=== PATIENT | male | born 1960 | race Caucasian/White ===

== ENCOUNTER → 2023-07-11 | Outpatient (CLI) | payer BC ==
--- NOTE | 2023-07-12 09:46 | CA ---
Transthoracic Echo Report Name: Alexandr Mendoza Age: 63 Gender: M : 1960 Exam Date: 07/11/2023 16:55 Exam Location: [facility] Ht (in): 71 Wt (lb): 195 Ordering Physician: Eric Khan MD Attending/Referring Phys: Eric Khan MD [employer]per Alia Ortiz, RDCS Procedure CPT: Indications: I10 HTN R01.1 CARDIAC MURMUR, UNSPECIFIE Cardiac Hx: Technical Quality: Good Contrast 1: Total Dose (mL): Contrast 2: Total Dose (mL): MEASUREMENTS (Male / Female) Normal Values 2D ECHO LV Diastolic Diameter PLAX 5.5 cm 4.2 - 5.9 / 3.9 - 5.3 cm LV Systolic Diameter PLAX 3.5 cm IVS Diastolic Thickness 0.9 cm 0.6 - 1.0 / 0.6 - 0.9 cm LVPW Diastolic Thickness 1.0 cm 0.6 - 1.0 / 0.6 - 0.9 cm LV Relative Wall Thickness 0.4 RV Internal Dim ED PLAX 3.1 cm LA Systolic Diameter LX 3.7 cm 3.0 - 4.0 / 2.7 - 3.8 cm LV Diastolic Volume MOD 4C 121.0 cm??? LV Systolic Volume MOD 4C 62.7 cm??? LV Ejection Fraction MOD 4C 48.2 % LV Cardiac Index MOD 4C 1788.2 cm???/min???m??? LV Diastolic Length 4C 8.9 cm LV Systolic Length 4C 7.4 cm LV Diastolic Volume MOD 2C 86.4 cm??? LV Systolic Volume MOD 2C 46.7 cm??? LV Ejection Fraction MOD 2C 46.0 % LV Cardiac Index MOD 2C 1218.6 cm???/min???m??? LV Diastolic Length 2C 8.2 cm LV Systolic Length 2C 7.0 cm LA Volume 40.0 cm??? 18 - 58 / 22 - 52 cm??? LA Volume Index 18.9 cm???/m??? 16 - 28 cm???/m??? M-MODE Aortic Root Diameter MM 3.5 cm MV E Point Septal Separation 0.5 cm AV Cusp Separation MM 2.3 cm DOPPLER AV Peak Velocity 106.0 cm/s AV Peak Gradient 4.5 mmHg MV Area PHT 3.1 cm??? Mitral E Point Velocity 68.6 cm/s Mitral A Point Velocity 81.5 cm/s Mitral E to A Ratio 0.8 MV Deceleration Time 241.1 ms MV E' Velocity 5.6 cm/s Mitral E to MV E' Ratio 12.2 FINDINGS Left Ventricle Left ventricular ejection fraction is estimated at 50-55 %. Left ventricular cavity size normal. Left ventricular wall thickness normal. No obvious regional wall motion abnormalities. Right Ventricle Normal right ventricular size. Unable to estimate the right ventricular systolic pressure. Right Atrium Normal right atrial size. Left Atrium Normal left atrial size. Mitral Valve Structurally normal mitral valve. No mitral stenosis, regurgitation or prolapse. Aortic Valve Trileaflet aortic valve. No aortic valve stenosis or regurgitation. Tricuspid Valve Structurally normal tricuspid valve. No tricuspid stenosis, regurgitation or prolapse. Pulmonic Valve Structurally normal pulmonic valve. No pulmonic regurgitation. Pericardium No pericardial effusion. Aorta Normal size aortic root and proximal ascending aorta. CONCLUSIONS Normal LV size and systolic fn Previewed by: Dr. Chapo Carlson MD (Electronically Signed) Final Date: 12 July 2023 09:46
== END | disposition home or self-care (01) ==
LOC: RADECHMAIN 16:49
PROVIDERS: ATTEND Internal Medicine Interventional Cardiology
DX: R01.1 Cardiac murmur, unspecified (principal); I10 Essential (primary) hypertension
CPT/HCPCS: 93306

== ENCOUNTER → 2024-06-02 | Outpatient (CLI) | payer BC ==
--- NOTE | 2024-06-02 16:41 | NM ---
EXAMINATION TYPE: NM stress cardiolite complete DATE OF EXAM: 06/02/2024 COMPARISON: NONE HISTORY: Coronary artery disease TECHNIQUE: After the intravenous administration of 10.06 mCi Tc 99m Sestamibi - Cardiolite resting S PECT images acquired 55 minutes post injection. At peak stress 24.6 mCi Tc 99m Sestamibi - Stress images obtained 10 minutes post injection The patient was stressed with 0.4mg Lexiscan. FINDINGS: No fixed defects are evident No reversible stress defects on Spect images. Polar map suggests some ischemia along the cardiac apex which is not identified on SPECT imaging. Wall motion is normal Ejection fraction is calculated to be low 49 %. Normal greater than 50% IMPRESSION: 1. No scintigraphic evidence for reversible ischemia. 2. Slightly low ejection fraction 49% [facility], , 06/02/2024 4:39 PM
--- NOTE | 2024-06-03 07:14 | CA ---
Exercise Nuclear Stress Test Report Name: Alexandr Mendoza Exam Date: 06/02/2024 09:49 Exam Location: [facility] Ht (in): 71 Wt (lb): 190 BSA: 2.06 Ordering Phys: Eric Khan MD Referring Phys: Nathan Kapoor Technologist: ANTON Age: 64 Gender: M : 1960 Procedure CPT: Indications: I25.10 CAD ICD-10 Codes: Patient History: History of ASCAD and hypertension Medications: Meds past 24 hrs: Pretest Chest Pain: STRESS TEST Terrell Protocol Exercise Duration (min:sec): 09:[address] Depressions (mm): Angina Score: Bernal Score: Resting HR (bpm): 55 Peak HR (bpm): 139 Resting BP (mmHg): 146 / 94 Peak BP (mmHg): 189 / 97 MPHR: 156 Target HR: 133 % MPHR: 89 METS: 10.3 Total Dose: Peak Dose: Atropine: Double Product: 35187 BP Response: Stress Termination: Reached target heart rate. Max exertion. Stress Symptoms: No chest pain or symptoms Stress Summary: ECG ANALYSIS Resting ECG: Stress ECG: CONCLUSIONS Baseline EKG revealed a normal sinus rhythm without significant ST-T changes. Patient walked on a standard Terrell protocol for 9 minutes and achieved a maximum heart rate of 139 bpm which is 89% of predicted maximal. He did not have any angina. There were no symptoms to suggest angina. There were no ST segment changes to indicate ischemia. Patient did not have any significant arrhythmia. This is a negative stress test with good exercise capacity Dr. Samuel Gray MD (Electronically Signed) Final Date: 03 June 2024 07:14
== END | disposition home or self-care (01) ==
LOC: RADNMMAIN 07:41
PROVIDERS: ATTEND Internal Medicine Interventional Cardiology
DX: I25.10 Atherosclerotic heart disease of native coronary artery without angina pectoris (principal)
CPT/HCPCS: 93017; 78452; A9500